=== PATIENT | female | born 1990 | race Caucasian/White ===

== ENCOUNTER 2017-12-17 10:54 | Emergency (ER) | payer OTHER ==
[2017-12-17 11:02] VITALS: RESP 16; TEMP 98.6
[2017-12-17 13:13] VITALS: O2SAT 96
--- NOTE | 2017-12-17 13:46 | EDPHY ---
H & P Smoking Status: Never smoked Time Seen by Provider: 12/17/17 12:02 HPI/ROS: CHIEF COMPLAINT: Vaginal bleeding HISTORY OF PRESENT ILLNESS: 27-year-old female presents to the emergency department with concerns about vaginal bleeding. Patient states that she is on oral contraceptive pills and missed 4 days. She took 4 pills at once today. She noted that she started having some vaginal bleeding but was concerned about the amount of bleeding. She does not think that she is . Her last menstrual period was approximately 1 month ago. No fevers or chills. No abdominal pain. No chest pain or difficulty breathing. No urinary symptoms. The patient is not concerned about sexually transmitted infections. REVIEW OF SYSTEMS: Constitutional: No fever, no chills. Eyes: No double or blurry vision. ENT: No sore throat. Respiratory: No cough, no shortness of breath. Cardiac: No chest pain. Gastrointestinal: No abdominal pain, vomiting or diarrhea. Genitourinary: No dysuria. Musculoskeletal: No neck or back pain. Skin: No rashes. Neurological: No headache. (Dian Germain) Past Medical/Surgical History: Negative (Dian Germain) Social History: Single (Dian Germain) Physical Exam: General Appearance: Alert, no distress. Vital signs are stable. Vital signs are stable. Eyes: Pupils equal and round. Extraocular motions are all intact. ENT: Mouth: Mucous membranes moist. Respiratory: No wheezing, rhonchi, or rales, lungs are clear to auscultation. Cardiovascular: Regular rate and rhythm. Gastrointestinal: Abdomen is soft and nontender, no masses, no rebound or guarding, bowel sounds normal. Neurological: Alert and oriented x 3, cranial nerves II through XII grossly intact Skin: Warm and dry, no rashes. Musculoskeletal: Nontender to palpate along the cervical, thoracic or lumbar spine. Neck is supple. Extremities: Full range of motion and no peripheral edema. Psychiatric: Patient is oriented X 3, there is no agitation. (Dian eGrmain) Constitutional: Initial Vital Signs Temperature (C) 37.0 C 12/17/17 10:57 Heart Rate 105 H 12/17/17 10:57 Respiratory Rate 16 12/17/17 10:57 Blood Pressure 144/80 H 12/17/17 10:57 O2 Sat (%) 97 12/17/17 10:57 O2 Delivery Mode Room Air Allergies/Adverse Reactions: No Known Allergies Allergy (Unverified 11/06/10 20:18) Medical Decision Making ED Course/Re-evaluation: 27-year-old female presents to the emergency department with vaginal bleeding. The patient states that the bleeding has improved. She declined pelvic examination. She declined ultrasound or blood work. She declined test. The patient would like to be discharged home. She states that she would take her own test. She will return to the emergency department if she develops abdominal pain, recurring bleeding, or any other concerns. (Dian Germain) I did not see this patient while she was in the emergency department. However her care was discussed with the PA while the patient was in the department. I agree with treatment plan and management (Dipesh Peterson) Differential Diagnosis: Including but not limited to dysfunctional uterine bleeding, intrauterine , sexually transmitted infection (Dian Germain) Departure - Departure Disposition: Home, Routine, Self-Care Clinical Impression: Dysfunctional uterine bleeding Condition: Good Instructions: Dysfunctional Uterine Bleeding (ED) Additional Instructions: Please check a test at home as discussed. Return to the emergency department if you developed recurring heavy bleeding, lightheaded, abdominal pain, or if you feel worse in any way. You refused IV fluids and laboratory studies. Referrals: Sofiya Radford MD [Medical Doctor] - As per Instructions (OBGYN on-call)
[2017-12-17 14:05] VITALS: BP 140/69; PULSE 70
== END 2017-12-17 14:04 | disposition home or self-care (01) ==
DX: N93.8 Other specified abnormal uterine and vaginal bleeding (principal)